=== PATIENT | female | born 2000 | race Two or more races ===

== ENCOUNTER 2024-03-13 01:21 | Emergency (ER) | payer OTHER, SELFPAY ==
[2024-03-13 01:22] VITALS: BMI 22.8
[2024-03-13 01:28] VITALS: BP 119/77; PULSE 88; RESP 18; TEMP 36.9; O2SAT 99
--- NOTE | 2024-03-13 01:59 | EDNOTE_ITS ---
ED Female Urogenital RME/HPI General Chief complaint: Urogenital-Female Stated complaint: VAG DISCHARGE, ITCHINESS X2 DAYS Time Seen by Provider: 03/13/24 01:50 Arrival date/time: 03/13/24 01:21 23F with no significant PMH presents to ED with 2 days of white/clear vaginal discharge, foul smell and itchiness. Patient denies dysuria and concern for STD. Patient has had yeast infections before and states this feels different. She's had BV before and states this feels the same. Limitations: no limitations Related Data Home Medications ?Medication ?Instructions ?Recorded ?Confirmed vit no.133-ferrous 200 tab PO BID 10/22/19 10/22/19 fumarate 28 mg-folic acid 800 mcg tablet () Previous Rx's ?Medication ?Instructions ?Recorded ibuprofen 600 mg tablet 600 mg PO Q6H PRN pain #120 tabs 10/23/19 ibuprofen 600 mg tablet 600 mg PO Q6H PRN fever or pain 06/07/23 #10 tabs ondansetron 4 mg disintegrating 4 mg PO Q6H PRN nausea and 06/07/23 tablet vomiting #10 tabs cephalexin 500 mg tablet 500 mg PO BID #14 tabs 12/06/23 cyclobenzaprine 10 mg tablet 10 mg PO HS PRN muscle spasm #14 12/06/23 tabs fluconazole 150 mg tablet 150 mg PO QDAY #1 tab 12/06/23 ibuprofen 800 mg tablet 800 mg PO Q6H PRN pain #14 tabs 12/06/23 metronidazole 500 mg tablet 500 mg PO BID 7 days #14 tabs 03/13/24 Allergies Allergy/AdvReac Type Severity Reaction Status Date / Time No Known Allergies Allergy Verified 03/13/24 01:24 Review of Systems Review of Systems Systems Reviewed: All systems reviewed, normal except as documented Constitutional Constitutional: Reports system reviewed and no additional complaints, except as documented, Denies fever(s) and Denies headache(s) ENT Ears, Nose, Mouth, and Throat: Denies disequilibrium and Denies headache(s) Cardiovascular Cardiovascular: Reports system reviewed and no additional complaints, except as documented, Denies chest pain and Denies dyspnea Respiratory Respiratory: Reports system reviewed and no additional complaints, except as documented, Denies cough and Denies dyspnea Gastrointestinal Gastrointestinal: Reports system reviewed and no additional complaints, except as documented, Denies abdominal pain, Denies nausea and Denies vomiting Genitourinary Genitourinary: Reports as per HPI, Reports vaginal discharge and Reports vaginal pruritus Neurologic Neurologic: Reports system reviewed and no additional complaints, except as documented, Denies confusion, Denies disequilibrium and Denies headache(s) Psychiatric Psychiatric: Denies confusion Past Medical History Past Medical History NEUROLOGIC: Negative Neurological Disorders CARDIAC: Negative Cardiac Disorders or Congestive Heart Failure RESPIRATORY: Negative Chronic Obstructive Pulmonary Disease (COPD) or Asthma GASTROINTESTINAL: Negative Gastrointestinal Disorders or Hepatitis GENITOURINARY: Negative Genitourinary Disorders or Renal Disease REPRODUCTIVE: Negative Endometriosis, Pelvic Inflammatory Disease, Previous Pregnancies or Uterine Prolapse MUSCULOSKELETAL: Negative Musculoskeletal Disorders ENDOCRINE: Negative Endocrine Disorders, Diabetes Mellitus Type 1 or Diabetes Mellitus Type 2 HEMATOLOGIC: Negative Blood Disorders or Sickle Cell Disease PSYCHO/SOCIAL: Positive Depression, Anxiety and Post Traumatic Stress Disorder OTHER HISTORY: Positive Hospitalization (HIP SURGERY); Negative Autoimmune Disease, Down Syndrome, Developmental Delay, Falls, Blood Transfusions, Blood Transfusion Reaction, Anesthesia Reactions, Organ Transplant, Chemotherapy, Radiation Therapy, Hyperbaric Therapy, MRSA, VRSA, Vancomycin-Resistant Enterococci, Human Immunodeficiency Virus (HIV), Chicken Pox, Measles, Mumps, Clostridium Difficile or Cancer Family History FAMILY HISTORY: Negative Family Psychiatric Problems, Family Respiratory Disorders, Family Cardiac Disorders, Family Gastrointestinal Problems, Family Cancer, Family Surgery or Family Anesthesia Reaction Surgical History SURGICAL: Negative Section or Organ Transplant Social History SMOKING STATUS: Never smoker ED Exam General Limitations: Present no limitations General appearance: Present alert and in no apparent distress Head Head exam: Present atraumatic Eye Eye exam: Present normal appearance, PERRL and EOMI ENT ENT exam: Present normal exam, normal oropharynx and mucous membranes moist Neck Neck exam: Present normal inspection, full ROM and trachea midline Chest Chest inspection: Present normal inspection and symmetric chest wall rise Respiratory Respiratory exam: Present normal lung sounds bilaterally Cardiovascular Cardiovascular exam: Present regular rate, normal rhythm and normal heart sounds Abdominal Exam Abdominal exam: Present soft and normal bowel sounds Extremities Exam Extremities exam: Present normal inspection and full ROM Back Exam Back exam: Present normal inspection and full ROM Neurological Exam Neurological exam: Present alert, oriented X3 and CN II-XII intact Psychiatric Psychiatric exam: Present normal affect and normal mood Skin Skin exam: Present warm, dry, intact and normal color Course Quality Measures none Orders Category Date Time Status Chlamydia/GC/TV - PCR Stat Lab 03/13/24 02:24 Received HCG Qualitative,Urine Stat Lab 03/13/24 02:24 Completed Urinalysis Stat Lab 03/13/24 02:24 Completed Fluconazole [Diflucan] Med 03/13/24 03:32 Discontinued 150 mg PO X1 ONE Vital Signs Vital signs: Vital Signs Temperature 98.5 F 03/13/24 01:28 Pulse Rate 88 03/13/24 01:28 Respiratory Rate 18 03/13/24 01:28 Blood Pressure 119/77 03/13/24 01:28 Pulse Oximetry (%) 99 03/13/24 01:28 Oxygen Delivery Method Room Air 03/13/24 01:28 O2 at 99% on RA and WNLs Urogenital - Female MDM Narrative MDM Narrative:: 23F with no significant PMH presents to ED with 2 days of white/clear vaginal discharge, foul smell and itchiness. Patient denies dysuria and concern for STD. Patient has had yeast infections before and states this feels different. She's had BV before and states this feels the same. Physical exam reveals no pelvic tenderness. Patient declines vaginal exam. Patient is afebrile, calm, and alert. Patient is okay being tested for GC/chlamydia, but does not want to to be empirically treated for it. UA suggests some infection. Will treat as BV given color of discharge and sy mptoms pending GC culture. Also no yeast in urine. Patient data External records reviewed:: [facility] previous records Clinical information provided by:: patient Social determinants that could affect healthcare access:: none Patient has the following chronic illnesses:: none How is presenting disease/condition affected by chronic disease/condition?: no chronic disease Evaluation data The following diagnostics were reviewed and interpreted by me:: lab results Lab and/or radiology exams considered but not ordered:: ordered Interpretation Summary: above Medications / Prescriptions Medications or Prescriptions considered but not ordered:: ordered Medication administrations:: Medication Administration History Discontinued Medications Fluconazole (Fluconazole 150 Mg Tablet) 150 mg PO X1 ONE Stop: 03/13/24 03:33 above Consultations Consultation(s) initiated? (list below): No Diagnosis Urogenital Female Differential Diagnosis: urinary tract infection, bacterial vaginosis, trichomoniasis, cervicitis, ovarian cyst, vaginitis, ruptured ovarian cyst, cyst of Bartholin's gland, cystitis, dysmenorrhea and other (vaginal discharge) Most likely diagnosis given after review of the tests above:: vaginal discharge Admission Indicated Admission indicated?: not indicated Admission Request Was there a request for admission?: No Disposition Plan Disposition Plan: Discharge Discharge Attestation Discharge Attestation: The patient and all family members were given an opportunity to ask questions and understood the discharge instructions. Discharge instructions specifically effects, indications for sooner follow up or return to the emergency department, and the expected course of current diagnosis. Patient condition: Stable Discharge Plan Plan Patient Disposition: HOME (Self Care) Disposition Comment: Stable Prescriptions/Referrals Prescriptions/Med Rec: New metronidazole 500 mg tablet 500 mg PO BID 7 Days Qty: 14 0RF No Action 28-800 mg-mcg Tablet 200 tab PO BID ibuprofen 600 mg tablet 600 mg PO Q6H MDD 5 PRN (Reason: pain) Qty: 120 0RF ondansetron 4 mg tablet,disintegrating 4 mg PO Q6H PRN (Reason: nausea and vomiting) Qty: 10 0RF ibuprofen 600 mg tablet 600 mg PO Q6H PRN (Reason: fever or pain) Qty: 10 0RF cephalexin 500 mg tablet 500 mg PO BID Qty: 14 0RF ibuprofen 800 mg tablet 800 mg PO Q6H PRN (Reason: pain) Qty: 14 0RF cyclobenzaprine 10 mg tablet 10 mg PO HS PRN (Reason: muscle spasm) Qty: 14 0RF fluconazole 150 mg tablet 150 mg PO QDAY Qty: 1 0RF Referrals: No Primary/Family,Physician [Primary Care Provider] - In 1 week Problem List Clinical Impression: Vaginal discharge Patient/Caregiver Discharge Instructions Additional Instructions: Please follow-up with PCP/OBGYN within 24-48 hours and return immediately if symptoms worsen. Print Language: Guamanian Stand Alone Forms: Patient Portal Info Letter PA/LEAD ASSISTANT MANAGER Supervising Physician ADELITA/LEAD ASSISTANT MANAGER Supervising Physician: Dr. Beck
[2024-03-13 02:54] LABS: Collection Type, Urine Clean Catch; RBC,Urine 0 /hpf (0-3)
[2024-03-13 03:28] LABS: Bacteria,Urine 1+; Bilirubin,Urine Negative (Negative); Blood,Urine Negative (Negative); Clarity,Urine Turbid (Clear/Hazy); Color,Urine Lt-Yellow (Lt Yel-Yel); Glucose, Urine Negative (Negative); HCG Qualitative,Urine Negative; Ketones,Urine Negative (Negative); Leukocyte Esterase,Urine Positive (Negative); Nitrite,Urine Negative (Negative); PH,Urine 5.5 (5.0-7.0); Protein,Urine Negative (Neg - Trace); Specific Gravity,Urine 1.022 (1.001-1.035); Squamous Epithelial Cell,Urine 5 /hpf (0-5); Urobilinogen,Urine Negative mg/dL (0.0-1.0); WBC,Urine 17 /hpf (0-5)
[2024-03-13] MEDS: FLUCONAZOLE 150 MG TABLET PO (04:11)
[2024-03-13 17:49] LABS: Chlamydia trachomatis PCR Negative (Not Detect); Neisseria Gonorrhoeae DNA PCR Negative (Not Detect); Trichomonas Negative (Negative)
== END 2024-03-13 04:19 | disposition home or self-care (01) ==
PROVIDERS: Physician Assistant; Emergency Provider Emergency Medicine
DX: N89.8 Other specified noninflammatory disorders of vagina (principal)
CPT/HCPCS: 81001; 81025; 87491; 87591; 87661; 99283; A9270

== ENCOUNTER 2025-01-23 09:49 | Emergency (ER) | payer OTHER, MEDICAID, SELFPAY ==
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
--- NOTE | 2025-01-23 10:43 | XR_ITS ---
Examination: Sacrum and coccyx 3 views TECHNIQUE: AP, inclined AP, lateral sacrum and coccyx 3 views Date and time: January 23, 2025 at 1053 hours FINDINGS: Symmetrical sacral foramina Mild bilateral sacroiliitis Intrauterine device satisfactory position No sacral or coccygeal fracture IMPRESSION: Mild bilateral sacroiliitis
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
[2025-01-23 10:54] VITALS: BP 136/70; PULSE 88; RESP 18; TEMP 36.9; O2SAT 100
[2025-01-23] MEDS: KETOROLAC INJ 60 MG/2 ML VIAL 30 MG IM (12:21)
== END 2025-01-23 12:46 | disposition home or self-care (01) ==
LOC: SERX 12:38
PROVIDERS: Emergency Provider Emergency Medicine
DX: M51.370 Other intervertebral disc degeneration, lumbosacral region with discogenic back pain only (principal); M46.1 Sacroiliitis, not elsewhere classified; M41.9 Scoliosis, unspecified; V89.2XXA Person injured in unspecified motor-vehicle accident, traffic, initial encounter
CPT/HCPCS: 72100; 72220; 81025; 96372; 99283; J1885